=== PATIENT | female | born 1965 | race Caucasian/White ===

== ENCOUNTER 2020-05-01 07:02 | Outpatient (CLI) | payer MEDICARE ==
[2020-05-01] MEDS ORDERED: LIDOCAINE 1%, 20ML ONE (08:00)
[2020-05-01] MEDS ORDERED: SODIUM BICARBONATE 4.2%, 5ML ONE (08:00)
[2020-05-01] MEDS ORDERED: LIDOCAINE 1%-EPI 1:100K, 20ML ONE (08:00)
[2020-05-03] MEDS ORDERED: BUSP10TA PO (08:53)
[2020-05-03] MEDS ORDERED: GABA600T7 PO (08:53)
[2020-05-03] MEDS ORDERED: TRAZ-175 PO (08:53)
[2020-05-03] MEDS ORDERED: ASPI81TA45 PO (08:53)
[2020-05-03] MEDS ORDERED: OXYB5TAB10 PO (08:53)
[2020-05-03] MEDS ORDERED: DULO60CA56 PO (08:53)
[2020-05-03] MEDS ORDERED: LOSA100T14 PO (08:53)
[2020-05-03] MEDS ORDERED: LEVO88TA4 PO (08:53)
[2020-05-03] MEDS ORDERED: LOVA10TA PO (08:53)
[2020-05-03] MEDS ORDERED: METF750T42 PO (08:53)
[2020-05-03] MEDS ORDERED: DULA0.75 INJ (08:53)
[2020-05-03] MEDS ORDERED: PANT40TA6 PO (08:53)
[2020-05-03] MEDS ORDERED: HYDR25TA6 PO (08:53)
[2020-05-03] MEDS ORDERED: PRAZ5CAP2 PO (08:53)
== END 2020-05-01 23:59 | disposition home or self-care (01) ==
LOC: CFH 07:02
PROVIDERS: ATTEND Surgery
DX: C50.011 Malignant neoplasm of nipple and areola, right female breast (principal); G47.30 Sleep apnea, unspecified; E66.01 Morbid (severe) obesity due to excess calories; Z79.82 Long term (current) use of aspirin; Z79.899 Other long term (current) drug therapy; Z87.891 Personal history of nicotine dependence; Z83.3 Family history of diabetes mellitus; Z82.49 Family history of ischemic heart disease and other diseases of the circulatory system
CPT/HCPCS: 19285; 77065; J3490

== ENCOUNTER → 2020-05-03 | Outpatient (CLI) | payer MEDICARE, MEDICAID ==
[~2020-05-03] MED LIST: ASPI81TA45 PO; BUSP10TA PO; DULA0.75 INJ; DULO60CA56 PO; GABA600T7 PO; HYDR25TA6 PO; LEVO88TA4 PO; LOSA100T14 PO; LOVA10TA PO; METF750T42 PO; OXYB5TAB10 PO; PANT40TA6 PO; PRAZ5CAP2 PO; TRAZ-175 PO
[2020-05-03 10:49] LABS: ALBUMIN 3.6 g/dL (3.4-5.0); ANION GAP 8 mmol/L (5-15); CALCIUM 9.3 mg/dL (8.5-10.1); CHLORIDE 106 mmol/L (98-107)
[2020-05-03 10:52] LABS: ALANINE AMINOTRANSFERASE 27 U/L (12-78); ALKALINE PHOSPHATASE 67 U/L (45-117); BILIRUBIN,TOTAL 0.5 mg/dL (0.2-1.0); TOTAL PROTEIN 7.6 g/dL (6.4-8.2)
== END | disposition home or self-care (01) ==
LOC: STAR 08:23
PROVIDERS: ATTEND Surgery
DX: Z01.812 Encounter for preprocedural laboratory examination (principal); Z20.828 Contact with and (suspected) exposure to other viral communicable diseases
CPT/HCPCS: 36415; 80053; 87635; 93005

== ENCOUNTER 2020-05-07 11:02 | Day surgery (SDC) | payer MEDICARE ==
[~2020-05-07] VITALS: Ht 158.8 cm; Wt 126.0 kg
[2020-05-07] MEDS ORDERED: CHLORHEXIDINE 15 ML UDC MM STA (11:19)
[2020-05-07] MEDS ORDERED: LACTATED RINGERS 1,000 ML IV SCH (11:30)
[2020-05-07] MEDS ORDERED: LIDOCAINE-MPF 1%, 5ML ONE (11:38)
[2020-05-07 12:24] VITALS: BP 133/84
[2020-05-07] MEDS ORDERED: ISOSULFAN BLUE 10 MG/ML, 5ML IV ONE (14:45)
[2020-05-07] MEDS ORDERED: BUPIVACAINE/PF 0.5% ONE (14:45)
[2020-05-07] MEDS ORDERED: EPINEPHRINE 1 MG/ML, 1ML ONE (14:45)
[2020-05-07] MEDS ORDERED: MIDAZOLAM 1 MG/ML, 2ML ONE (14:56)
[2020-05-07] MEDS ORDERED: FENTANYL PF 100 MCG/2ML ONE ×3 (14:56→16:35)
[2020-05-07] MEDS ORDERED: SUCCINYLCHOLINE 20 MG/ML, 10ML ONE (16:03)
[2020-05-07] MEDS ORDERED: ROCURONIUM 10MG/ML,5ML ONE (16:03)
[2020-05-07] MEDS ORDERED: PROPOFOL 10 MG/ML, 20ML ONE (16:03)
[2020-05-07] MEDS ORDERED: CEFAZOLIN 1,000 MG ONE (16:03)
[2020-05-07] MEDS ORDERED: DEXAMETHASONE 4 MG/ML, 1ML ONE (16:03)
[2020-05-07] MEDS ORDERED: ONDANSETRON 2MG/ML, 2ML ONE (16:03)
[2020-05-07] MEDS ORDERED: OXYcodone 5 MG/5 ML ORAL.SOL UDC PO PRN (16:30)
[2020-05-07] MEDS ORDERED: ALBUTEROL SULFATE 2.5 MG/3 ML NPPB PRN (16:30)
[2020-05-07] MEDS ORDERED: LABETALOL 5MG/ML, 20ML IV PRN (16:30)
[2020-05-07] MEDS ORDERED: LORazepam 2 MG/ML, 1ML IVPush PRN (16:30)
[2020-05-07] MEDS ORDERED: MEPERIDINE/PF 25MG/0.5ML IVPush PRN (16:30)
[2020-05-07] MEDS ORDERED: HYDROmorphone 1 MG/ML, 1ML INJ IVPush PRN (16:30)
[2020-05-07] MEDS ORDERED: PROMETHAZINE 25 MG/ML, 1ML IVPush PRN (16:30)
[2020-05-07] MEDS ORDERED: hydrALAzine 20 MG/ML, 1ML IV PRN (16:30)
[2020-05-07] MEDS ORDERED: ACETAMINOPHEN 325 MG TABLET PO PRN (16:30)
[2020-05-07] MEDS ORDERED: OXYcodone 5 MG/5 ML ORAL.SOL UDC ONE (16:35)
[2020-05-07] MEDS: FENTANYL PF 100 MCG/2ML IV PRN ×2 (16:42→17:05)
[2020-05-07] MEDS ORDERED: HYDROmorphone 1 MG/ML, 1ML INJ ONE (17:06)
== END 2020-05-07 18:30 | disposition home or self-care (01) ==
LOC: OUT 11:02 → EDSTATUS 13:30 → OUT 18:30
PROVIDERS: ATTEND Surgery
DX: C50.011 Malignant neoplasm of nipple and areola, right female breast (principal); C77.3 Secondary and unspecified malignant neoplasm of axilla and upper limb lymph nodes; I10 Essential (primary) hypertension; E11.9 Type 2 diabetes mellitus without complications; J44.9 Chronic obstructive pulmonary disease, unspecified; E78.5 Hyperlipidemia, unspecified; K21.9 Gastro-esophageal reflux disease without esophagitis; G62.9 Polyneuropathy, unspecified; G47.30 Sleep apnea, unspecified; E66.01 Morbid (severe) obesity due to excess calories; Z68.42 Body mass index [BMI] 45.0-49.9, adult; Z17.0 Estrogen receptor positive status [ER+]; Z79.82 Long term (current) use of aspirin; Z79.84 Long term (current) use of oral hypoglycemic drugs; Z79.890 Hormone replacement therapy; Z79.899 Other long term (current) drug therapy; Z87.891 Personal history of nicotine dependence; Z98.890 Other specified postprocedural states
CPT/HCPCS: 19301; 38525; 38792; 76098; 82962; 88305; 88307; A9541; J0171; J0330; J0690; J1100; J1170; J2250; J2405; J2704; J3010; J7120

== ENCOUNTER 2020-05-13 17:12 | Emergency (ER) | payer MEDICARE, MEDICAID ==
[~2020-05-13] VITALS: Ht 160 cm; Wt 127.0 kg
[2020-05-13 17:22] VITALS: BP 112/57
--- NOTE | 2020-05-13 17:47 | NUR ---
REFRIGERATING OILER: PT TO ROOM FROM LOBBY VIA
[2020-05-13] MEDS ORDERED: NEOSPORIN OINT. PKT 1 PACKET ONE ×2 (18:27→18:30)
[2020-05-13] MEDS ORDERED: DIPH,PERTUSS(ACELL),TET VAC/PF 0.5 ML IM-VACC ONE ×2 (18:28→18:30)
== END 2020-05-13 18:48 | disposition home or self-care (01) ==
LOC: ED 17:51
DX: T81.30XA Disruption of wound, unspecified, initial encounter (principal); S61.002A Unspecified open wound of left thumb without damage to nail, initial encounter; W45.8XXA Other foreign body or object entering through skin, initial encounter; Y93.89 Activity, other specified; Y92.009 Unspecified place in unspecified non-institutional (private) residence as the place of occurrence of the external cause; Y99.8 Other external cause status
CPT/HCPCS: 90471; 90715; 99283

== ENCOUNTER 2020-05-25 07:36 | Emergency (ER) | payer MEDICARE, MEDICAID ==
[~2020-05-25] VITALS: Ht 160 cm; Wt 127.3 kg
[2020-05-25] MEDS ORDERED: SODIUM CHLORIDE FLUSH 10ML SYR IVF ONE (08:00)
[2020-05-25 09:04] LABS: BASOPHILS % (AUTO) 1 % (0-1); EOSINOPHILS % (AUTO) 2 % (1-7); LYMPHOCYTES % (AUTO) 17 % (22-44); MEAN CORPUSCULAR HEMOGLOBIN 26.5 pg (27.0-34.8); MEAN PLATELET VOLUME 9.8 fL (7.4-10.4); MONOCYTES % (AUTO) 6 % (2-9); NEUTROPHILS % (AUTO) 75 % (42-75); PLATELET COUNT 208 x10^3/uL (130-400); RED BLOOD COUNT 5.17 x10^6/uL (3.82-5.3); RED CELL DISTRIBUTION WIDTH 15.5 % (9.6-15.2)
[2020-05-25 09:08] LABS: MD NO
[2020-05-25 09:11] LABS: ALANINE AMINOTRANSFERASE 21 U/L (12-78); ALBUMIN 3.5 g/dL (3.4-5.0); ANION GAP 5 mmol/L (5-15); CALCIUM 9.3 mg/dL (8.5-10.1); CHLORIDE 110 mmol/L (98-107); CREATININE 0.67 mg/dL (0.55-1.02)
[2020-05-25 09:13] LABS: ALKALINE PHOSPHATASE 75 U/L (45-117); BILIRUBIN,TOTAL 0.3 mg/dL (0.2-1.0); TOTAL PROTEIN 7.6 g/dL (6.4-8.2)
[2020-05-25] MEDS ORDERED: OMNIPAQUE 350 MG/ML, 100ML BOTTLE ONE (09:44)
[2020-05-25 10:21] LABS: MICROSCOPIC AUTO
[2020-05-25] MEDS ORDERED: OXYcodone/APAP 5/325MG TABLET PO ONE (10:30)
[2020-05-25] MEDS ORDERED: OXYcodone/APAP 5/325MG TABLET ONE (10:49)
[2020-05-25 11:55] VITALS: BP 123/83
== END 2020-05-25 11:25 | disposition home or self-care (01) ==
LOC: ED 08:38
DX: S20.211A Contusion of right front wall of thorax, initial encounter (principal); S20.01XA Contusion of right breast, initial encounter; N30.00 Acute cystitis without hematuria; M79.621 Pain in right upper arm; R07.89 Other chest pain; I10 Essential (primary) hypertension; E11.9 Type 2 diabetes mellitus without complications; X58.XXXA Exposure to other specified factors, initial encounter; Y93.89 Activity, other specified; Y92.89 Other specified places as the place of occurrence of the external cause; Y99.8 Other external cause status
CPT/HCPCS: 36415; 71275; 80053; 81001; 83605; 85025; 87040; 87086; 99285; Q9967; 87147

== ENCOUNTER → 2020-06-08 | Outpatient (CLI) | payer MEDICARE, MEDICAID | END | disposition home or self-care (01) | LOC: ROC 06-04 07:41 | PROVIDERS: ATTEND Radiology Radiation Oncology | DX: C50.011 Malignant neoplasm of nipple and areola, right female breast (principal); I10 Essential (primary) hypertension; E11.9 Type 2 diabetes mellitus without complications; J44.9 Chronic obstructive pulmonary disease, unspecified; K21.9 Gastro-esophageal reflux disease without esophagitis; E78.5 Hyperlipidemia, unspecified; E66.01 Morbid (severe) obesity due to excess calories; Z68.42 Body mass index [BMI] 45.0-49.9, adult; Z17.0 Estrogen receptor positive status [ER+]; Z79.84 Long term (current) use of oral hypoglycemic drugs; Z79.82 Long term (current) use of aspirin; Z87.891 Personal history of nicotine dependence; Z79.899 Other long term (current) drug therapy | CPT/HCPCS: 99214; G0463 ==

== ENCOUNTER → 2020-06-12 | Outpatient (CLI) | payer MEDICARE, MEDICAID | END | disposition home or self-care (01) | LOC: PETCFH 12:11 | PROVIDERS: ATTEND Pathology Hematology | DX: C50.111 Malignant neoplasm of central portion of right female breast (principal); N64.89 Other specified disorders of breast; Z90.49 Acquired absence of other specified parts of digestive tract | CPT/HCPCS: 78815; A9552 ==

== ENCOUNTER → 2020-07-06 | Outpatient (CLI) | payer MEDICARE, MEDICAID ==
[~2020-07-06] MED LIST changes: +GADOTERATE 7.5 MMOL/15 ML VIAL ONE
== END | disposition home or self-care (01) ==
LOC: RAD 12:00
PROVIDERS: ATTEND Radiology Radiation Oncology
DX: C50.911 Malignant neoplasm of unspecified site of right female breast (principal); R51.9 Headache, unspecified; E11.9 Type 2 diabetes mellitus without complications
CPT/HCPCS: 70553; A9575

== ENCOUNTER → 2020-08-27 | Outpatient (CLI) | payer MEDICARE, MEDICAID ==
[~2020-08-27] MED LIST changes: -GADOTERATE 7.5 MMOL/15 ML VIAL ONE; +OXYC5CAP2 PO; +OXYC5TAB98 PO
== END | disposition home or self-care (01) ==
LOC: ROC 07:18
PROVIDERS: ATTEND Radiology Radiation Oncology
DX: Z08 Encounter for follow-up examination after completed treatment for malignant neoplasm (principal); Z85.3 Personal history of malignant neoplasm of breast; J44.9 Chronic obstructive pulmonary disease, unspecified; E66.01 Morbid (severe) obesity due to excess calories; Z68.42 Body mass index [BMI] 45.0-49.9, adult; I10 Essential (primary) hypertension; K21.9 Gastro-esophageal reflux disease without esophagitis; E78.5 Hyperlipidemia, unspecified; Z17.0 Estrogen receptor positive status [ER+]; Z79.82 Long term (current) use of aspirin; Z87.891 Personal history of nicotine dependence; Z79.84 Long term (current) use of oral hypoglycemic drugs
CPT/HCPCS: 99212; G0463

== ENCOUNTER → 2020-12-03 | Outpatient (CLI) | payer MEDICARE, MEDICAID | END | disposition home or self-care (01) | LOC: ROC 07:58 | PROVIDERS: ATTEND Radiology Radiation Oncology | DX: Z08 Encounter for follow-up examination after completed treatment for malignant neoplasm (principal); Z85.3 Personal history of malignant neoplasm of breast; I89.0 Lymphedema, not elsewhere classified | CPT/HCPCS: 99212; G0463 ==

== ENCOUNTER 2021-04-20 17:15 | Emergency (ER) | payer MEDICARE, MEDICAID ==
[~2021-04-20] VITALS: Ht 160 cm; Wt 128.0 kg
[~2021-04-20 17:15] MED LIST changes: +ACYC-40 PO; +ALBU0.63 NEB; +DULO60CA7 PO; +GLIP2.5T3 PO; +LEVE500V6 PO
--- NOTE | 2021-04-20 17:54 | NUR ---
FIRST CONTACT: "MY CHEST HAS BEEN HURTING FOR DAYS AND I'M SOB, MY NECK IS HURTING. LAST WEEK I HAD REALLY HIGH BLOOD PRESSURE AND HEART BURN" PT POSTIONED TO COMFORT. ATTACHED TO MONITOR. VSS. NADN. HASKINS AT BEDSIDE FOR EVALUATION. +VACCINE
[2021-04-20] MEDS ORDERED: SODIUM CHLORIDE FLUSH 10ML SYR IVF ONE (18:00)
[2021-04-20 18:37] LABS: ALBUMIN 3.3 g/dL (3.4-5.0); ANION GAP 6 mmol/L (5-15); CALCIUM 8.9 mg/dL (8.5-10.1); CHLORIDE 102 mmol/L (98-107)
[2021-04-20 18:43] LABS: ALANINE AMINOTRANSFERASE 52 U/L (12-78); ALKALINE PHOSPHATASE 94 U/L (45-117); BASOPHILS % (AUTO) 1 % (0-1); BILIRUBIN,TOTAL 0.3 mg/dL (0.2-1.0); CREATININE 0.87 mg/dL (0.55-1.02); EOSINOPHILS % (AUTO) 2 % (1-7); LYMPHOCYTES % (AUTO) 12 % (22-44); MEAN CORPUSCULAR HEMOGLOBIN 26.6 pg (27.0-34.8); MEAN CORPUSCULAR HGB CONC 32.9 g/dL (32.4-35.8); MEAN PLATELET VOLUME 9.5 fL (7.4-10.4); MONOCYTES % (AUTO) 6 % (2-9); NEUTROPHILS % (AUTO) 80 % (42-75); PLATELET COUNT 207 x10^3/uL (130-400); RED BLOOD COUNT 5.14 x10^6/uL (3.82-5.3); TOTAL PROTEIN 7.5 g/dL (6.4-8.2); TROPONIN I < 0.015 ng/mL (0.000-0.045)
[2021-04-20] MEDS ORDERED: KETOROLAC 30 MG/1 ML ONE (18:52)
[2021-04-20] MEDS ORDERED: ONDANSETRON 2MG/ML, 2ML ONE (18:52)
[2021-04-20] MEDS ORDERED: ONDANSETRON 2MG/ML, 2ML IVPush ONE (19:00)
[2021-04-20] MEDS ORDERED: KETOROLAC 30 MG/1 ML IVPush ONE (19:00)
--- NOTE | 2021-04-20 19:09 | NUR ---
PT IN ROOM, C/O PAIN TO CHEST, 03/05 AND MD NOTIFIED. WENT TO MEDICATE THE PT VIA IV ON LEFT AC, AND PT SAYS IT'S VERY PAINFUL ON INFUSION. ATTEMPTED TO FLUSH AND TROUBLE SHOOT PIV, BUT PT SAYS IT HURTS A LOT. UNABLE TO DRAW BLOOD BACK. PT SAYS THAT THE PREVIOUS SHIFT, THEY PULLED BLOOD FROM IT AND FLUSHED IT. THE PIV DOESN'T SEEM TO BE WORKING. NEW IV BEING ATTEMPTED UNDER ULTRASOUND AND THE LEFT AC PIV WILL BE D/C'D. PT TOLERATING WELL, AND AT BEDSIDE.
[2021-04-20 19:19] VITALS: BP 119/67
--- NOTE | 2021-04-20 20:41 | NUR ---
PT A&OX4, AND MD TO BEDSIDE TO SPEAK WITH PT TBDC. F/U AND D/C INSTRUCTIONS GIVEN TO PT AND SHE V/U. PT AMBULATED TO THE DC DESK WITHOUT INCIDENT. PIV TO LEFT FOREARM D/C'D AND CATH TIP INTACT.
== END 2021-04-20 20:44 | disposition home or self-care (01) ==
LOC: ED 17:30
DX: R07.89 Other chest pain (principal); Z20.822 Contact with and (suspected) exposure to COVID-19; R42 Dizziness and giddiness; R06.00 Dyspnea, unspecified; R00.0 Tachycardia, unspecified
CPT/HCPCS: 36415; 71045; 80053; 83880; 84484; 85025; 85379; 93005; 96374; 96375; 99285; J1885; J2405; U0003; U0005